=== PATIENT | male | born 1950 | race Caucasian/White ===

== ENCOUNTER 2024-10-21 14:53 | Outpatient (CLI) | payer MEDICARE, SELFPAY ==
[2024-10-21 16:18] LABS: Basophils # 0.1 K/mm3 (0-0.2); Basophils % 0.9 % (0.1-2.0); Eosinophils # 0.2 Kmm3 (0.0-0.4); Eosinophils % 3.2 % (0.1-12.0); Hemoglobin 15.9 g/dL (14.1-18.0); Immature Granulocytes # 0.01 10^3uL; Immature Granulocytes % 0.2 %; Lymphocytes % 30.6 % (10-50); Mean Corpuscular HGB Conc 33.1 g/dL (31.8-35.4); Mean Corpuscular Hemoglobin 30.8 pg (27.0-31.2); Mean Corpuscular Volume 92.8 fl (80-94); Mean Platelet Volume 11.2 fl (7.4-10.4); Monocytes # 0.7 K/mm3 (0.1-1.0); Monocytes % 10.5 % (1.7-9.3); Neutrophils # 3.5 K/mm3 (1.8-7.8); Neutrophils % 54.6 % (37.0-80.0); Nucleated Red Blood Cells # 0 10^3/uL; Nucleated Red Blood Cells % 0 %; Platelet Count 238 K/mm3 (142-424); Red Blood Count 5.17 M/mm3 (4.60-6.20); Red Cell Distribution Width 13.1 % (11.5-17.5); Red Cell Distribution Width-SD 44.5 fL; White Blood Count 6.5 K/mm3 (4.8-10.8)
[2024-10-21 17:33] LABS: Albumin Level 4.6 g/dl (3.5-5.0); Chloride 107 mmol/L (98-107); Potassium 4.7 mmoL/L (3.5-5.1); Sodium 142 mmol/L (136-145)
[2024-10-21 17:35] LABS: Blood Urea Nitrogen 17 mg/dl (9-20)
[2024-10-21 17:36] LABS: Alanine Aminotransferase 16 U/L (12-78); Albumin/Globulin Ratio 1.9 (1.1-1.8); Alkaline Phosphatase 68 U/L (38-126); Anion Gap 12.7 mEq/L (5-15); Aspartate Amino Transferase 23 U/L (17-59); Bilirubin,Total 0.5 mg/dl (0.2-1.3); Carbon Dioxide 27 mmol/L (22.0-30.0); Cholesterol 199 mg/dl (140-200); Estimated Glomerular Filt Rate 82 ml/min (>60); GFR (African American) 100 ML/MIN (>60); Globulin 2.4 g/dL (1.3-3.2); Iron 84 ug/dL (49-181); Phosphorous 3.1 mg/dl (2.5-4.5); Triglycerides 168 mg/dl (30-150); VLDL Cholesterol 34 mg/dL (0-40)
[2024-10-21 17:37] LABS: Calcium 9.6 mg/dl (8.4-10.2); Glucose 100 mg/dl (74-100)
[2024-10-21 17:45] LABS: Hemoglobin A1C 5.5 % (4.0-6.0)
[2024-10-21 17:48] LABS: Direct LDL Cholesterol 102.17 mg/dL (100-129); NT Pro Brain Natriuretic Pep. 72.4 pg/mL (0-125); Total Iron Binding Capacity 291 ug/dL (261-462)
[2024-10-21 18:03] LABS: Troponin I < 0.01 ng/ml (0.00-0.034)
[2024-10-21 18:08] LABS: 25-OH Vitamin D, Total 59.9 ng/mL (30-100)
[2024-10-21 18:09] LABS: Thyroid Stimulating Hormone 0.88 uIU/mL (0.465-4.68)
[2024-10-21 18:13] LABS: Ferritin 121 ng/ml (17.9-464)
[2024-10-21 18:14] LABS: HIV Combo NEGATIVE (Negative)
[2024-10-21 18:25] LABS: Hepatitis C Ab Qual. W/ RFX NEGATIVE (Negative)
[2024-10-21 18:35] LABS: Prostate Specific Ag Screen 2.4 ng/ml (0.0-4.0)
[2024-10-21 18:54] LABS: Vitamin B12 325 pg/mL (239-931)
[2024-10-21 19:54] LABS: Chol/HDL Ratio 4.1 (1-3.5); HDL Cholesterol 48 mg/dl (40-60)
== END 2024-10-21 23:59 | disposition home or self-care (01) ==
LOC: LAB.DROPOF 22:10
PROVIDERS: PCP Nurse Practitioner Family; Visit Provider Nurse Practitioner Family
DX: E55.9 Vitamin D deficiency, unspecified (principal); G57.92 Unspecified mononeuropathy of left lower limb; E78.5 Hyperlipidemia, unspecified; D64.9 Anemia, unspecified; M79.602 Pain in left arm; R53.83 Other fatigue; R06.00 Dyspnea, unspecified; R60.0 Localized edema; R07.89 Other chest pain; Z13.1 Encounter for screening for diabetes mellitus; Z12.5 Encounter for screening for malignant neoplasm of prostate; Z11.59 Encounter for screening for other viral diseases; Z13.220 Encounter for screening for lipoid disorders; Z11.4 Encounter for screening for human immunodeficiency virus [HIV]
CPT/HCPCS: 80053; 80061; 82306; 82607; 82728; 83036; 83540; 83550; 83880; 84100; 84439; 84443; 84484; 84550; 85025; 86803; 87389; G0103

== ENCOUNTER 2024-10-24 09:38 | Outpatient (CLI) | payer MEDICARE, SELFPAY ==
--- NOTE | 2024-10-24 | US_ITS ---
FINAL REPORT CLINICAL HISTORY: LEG PAIN CHRONIC BACK INJURY, FAMILY HX-HEART DISEASE FINDINGS: LOWER EXTREMITY SEGMENTAL PRESSURE MEASUREMENTS FINDINGS: Pressure indices are as follows: RIGHT LOWER EXTREMITY: Thigh: 1.02 Calf: 1.16 Ankle, posterior tibial artery: 1.08 Ankle, dorsalis pedis: 1.17 Toe: 0.63 WAYNE: 1.17 Comments: Within normal limits LEFT LOWER EXTREMITY: Thigh: 1.08 Calf: 1.20 Ankle, posterior tibial artery: 1.18 Ankle, dorsalis pedis: 0.96 Toe: 0.73 WAYNE: 1.18 Comments: Within normal limits IMPRESSION: No evidence of peripheral vascular disease in the bilateral lower extremities. Reviewed, Interpreted and Dictated by Renetta Hill MD Transcribed by Aleida Shafer Authenticated and [facility]
--- NOTE | 2024-10-24 | CA_ITS ---
APPROVED REPORT EXAM: Comprehensive 2D, Doppler, and color-flow Echocardiogram Pattern Duplicator: DIAN Kennedy, RVS Ht: 6 ft 0 in Wt: 243lbs BSA: 2.31 BP: 173/84 mmHg Indications: Family History early cardiac demise, CP, Dyspnea, Edema, Dizziness 2D Dimensions Left Atrium 4.49 cm M: 3.0 - 4.0 LA Volume 106.30 mL LA Volume Index [id number] mL/m2 (M/F) 16-34 M-Mode Dimensions RVDd 3.14 cm (0.9-2.6) LA Diam 4.39 cm (1.9-4.0) LVDd 4.88 cm (3.5-5.7) LVDs 3.27 cm (3.5-5.7) IVSd 1.15 cm (0.6-1.1) PWd 1.10 cm (0.6-1.1) EF (Teich) 61.30% EPSs 0.38 cm FS 33.00% EDV (Teich) 111.70 mL TAPSE 2.17 (<1.7) ESV (Teich) 43.20 mL LV Diastology E Decel Time 237 (160-240 msec) E/A Ratio 1.22 MED A' 13.30 cm/s LAT A' 13.10 cm/s Aortic Valve LOU Index 1.03 cm2/m2 AoV Peak Smooth. 111.0 (50-130 cm/s) AO Peak GR. 4.90 mmHg AO Mean GR. 2.50 (<5 mmHg) AO VTI 25.1 (18-25 cm) LOU (VTI) 2.45 (2.5-4.5 cm2) Mitral Valve MV A Velocity 49.0 (40-130 cm/s) E/A Ratio 1.22 Left Ventricle The left ventricle is normal size. The left ventricular systolic function is normal. The left ventricular ejection fraction is within the normal range. There is increased LV wall thickness. There is normal LV segmental wall motion. The left ventricular diastolic function is normal. LVEF is 60%. Right Ventricle The right ventricle is normal size. The right ventricular systolic function is normal. Atria Left atrium is mildly dilated. The right atrium size is normal. There is no Doppler evidence of interatrial shunt. Aortic Valve The aortic valve opens well. There is no aortic valvular stenosis. No aortic regurgitation is present. Mitral Valve The mitral valve is normal in structure. No evidence of mitral valve stenosis. Trace mitral regurgitation. Tricuspid Valve Tricuspid valve is grossly normal in structure and function. Trace tricuspid regurgitation. There is insufficient TR jet to estimate RVSP. Pulmonic Valve The pulmonary valve is normal in structure. Trace pulmonic regurgitation. Great Vessels The aortic root is normal in size. The ascending aorta is mildly dilated, measuring 3.9 cm in diameter. IVC is normal in size and collapses >50% with inspiration. Pericardium There is no pericardial effusion. Other Information Study Quality: Adequate Conclusion Normal biventricular systolic function. Mild LA dilation. No significant valvular stenosis or regurgitation. Ascending aorta is mildly dilated, measuring 3.9 cm in diameter. Correlation with new or recent CTA chest is suggested. Electronically signed by : Valery Ang MD 10/30/2024 12:35:21
--- NOTE | 2024-10-24 10:30 | CA_ITS ---
FINAL REPORT CLINICAL HISTORY: dizziness, htn COMPARISON: None FINDINGS: RIGHT CAROTID: CCA PSV -111 cm/sec ICA PSV -105 cm/sec ICA/CCA PSV ratio -1.7. Comments: Mild plaque disease is noted. LEFTCAROTID: CCA PSV -55. cm/sec ICA PSV -124. cm/sec ICA/CCA PSV ratio -2.5. Comments: Mild plaque disease is noted. Antegrade flow is seen within the vertebral arteries. IMPRESSION: Carotid stenosis classified less than 50% Reviewed, Interpreted and Dictated by Renetta Hill MD Transcribed by Nohelia Dickinson Authenticated and [facility]
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
== END 2024-10-24 23:59 | disposition home or self-care (01) ==
LOC: RT 09:39
PROVIDERS: PCP Nurse Practitioner Family; Visit Provider Nurse Practitioner Family
DX: I65.23 Occlusion and stenosis of bilateral carotid arteries (principal); I73.9 Peripheral vascular disease, unspecified; G57.92 Unspecified mononeuropathy of left lower limb; M54.6 Pain in thoracic spine; M79.602 Pain in left arm; I10 Essential (primary) hypertension; R06.00 Dyspnea, unspecified; R07.89 Other chest pain; Z82.49 Family history of ischemic heart disease and other diseases of the circulatory system
CPT/HCPCS: 72146; 93306; 93880; 93923

== ENCOUNTER 2024-10-30 06:40 | Outpatient (CLI) | payer MEDICARE, SELFPAY ==
--- NOTE | 2024-10-30 | CA_ITS ---
APPROVED REPORT Exam: Exercise Treadmill Technologist: Jaqueline Ramírez Ht: 6 ft 0 in Wt: 243 lbs BSA: 2.31 m2 HR: 54 bpm BP: 167/94 mmHg Rhythm: NSR Stress Test Details Test: Exercise stress testing was performed using a Phuc protocol. HR Resting HR: 54 bpm Max Heart Rate (APMHR): 146 bpm Max HR Achieved: 130 bpm Target HR (85% APMHR): 124 bpm % of APMHR: 89 Recovery HR: 79 bpm HR response to stress: Normal HR response to stress BP Resting BP: 167.0/94.0 mmHg Max BP: 220.0/94.0 mmHg Recovery BP: 174.0/89.0 mmHg BP response to stress: Abnormal hypertensive response to stress. ECG Resting ECG: Sinus rhythm Stress EC mm horizontal ST depression Clinical Exercise duration: 7.45 min Exercise capacity: 10.1 METs Stress ECG Conclusion Symptoms: Shortness of breath with peak exercise. No chest pain. Arrhythmias/Ectopy: PVC noted with exercise and during recovery ST-T Changes: [address] segment depression. Conclusion: Average exercise capacity. Hypertensive BP response to exercise. Equivocal ECG changes at peak stress. Myoview images are reported separately. Electronically signed by : Valery Ang MD 10/30/2024 12:15:00
--- NOTE | 2024-10-30 07:30 | NM_ITS ---
APPROVED REPORT Exam: Nuclear Stress Test Indication: Chest pain, SOB, Abnormal EKG, Palpitations, Family history Patient Location: Outpatient Stress Tech: Jaqueline Ramírez [place] Tech:Juliana Galarza, ARRT, RT (R)(N) Ht: 6 ft 0 in Wt: 244 lbs HR: 53 bpm BP: 167/94 mmHg BSA: 2.32 m2 TID: 1.06 History: Chest pain, SOB, Abnormal EKG, Palpitations, Family history Procedure: Patient exercised on Phuc protocol 7:45 minutes and sec, resting heart rate 53 bpm, resting blood pressure 167/94 mmHg, with exercise maximum heart rate achived was 140 bpm which is 95 % of the maximum predicted heart rate and blood pressure was 220/94 mmHg. Test was stopped due to SOB. Patient denied any complaint of chest pain. Patient has Average exercise capacity, achieved 10.1 METs of workload on treadmill, the blood pressure response to exercise was Hypertensive. Cardiac Stress and Resting SPECT Images: Cardiac Stress and Resting SPECT images were obtained using technetium 99m Myoview 27.7 mCi stress and 10.92 mCi at rest. Raw images demonstrate significant soft tissue overlap with the cardiac borders. This may affect diagnostic interpretation of the study findings. Resting and stress imaging in supine positions demonstrate a medium sized, mild, tapered perfusion defect in the basal inferior LV wall. This is no longer visualized with prone stress imaging. Findings are suggestive of diaphragmatic attenuation. Gated imaging demonstrates normal global and regional LV systolic function. LVEF is calculated at 61%. Conclusion: Diaphragmatic attenuation is present. No evidence of fixed or reversible perfusion defects. Gated imaging demonstrates normal global and regional LV systolic function. LVEF is calculated at 61%. Of note, the patient had a hypertensive BP response to exercise. BP control is recommended. Electronically signed by : Valery Ang MD 10/30/2024 12:17:00
[2024-10-30] MEDS: SODIUM CHLORIDE 0.9% 10ML SYR (RAD ONLY) 10 ML IV ×2 (09:29)
[2024-10-30] MEDS: ISOTOPE MYOVIEW (PER STUDY) 1 DOSE IV (09:29)
== END 2024-10-30 23:59 | disposition home or self-care (01) ==
LOC: RAD 06:41
PROVIDERS: PCP Nurse Practitioner Family; Visit Provider Nurse Practitioner Family
DX: I49.3 Ventricular premature depolarization (principal); R94.31 Abnormal electrocardiogram [ECG] [EKG]; I10 Essential (primary) hypertension; R07.89 Other chest pain; M79.602 Pain in left arm; R60.0 Localized edema
CPT/HCPCS: 78452; 93017; 93018; A9502